=== PATIENT | female | born 1945 | race Caucasian/White ===

== ENCOUNTER 2016-03-04 11:29 | Outpatient (CLI) | payer MEDICARE, OTHER ==
[2016-03-04 12:23] LABS: eGFR (African) > 60; eGFR (Non-African) > 60
== END 2016-03-04 11:30 ==
LOC: LAB 11:29
PROVIDERS: ATTEND Family Medicine
DX: E78.2 Mixed hyperlipidemia (principal); E11.9 Type 2 diabetes mellitus without complications
CPT/HCPCS: 36415; 80053; 80061; 83036

== ENCOUNTER 2016-04-03 10:16 | Outpatient (CLI) | payer MEDICARE, OTHER | END 2016-04-03 10:17 | LOC: LABRHC 10:16 | PROVIDERS: ATTEND Physician Assistant | DX: N39.0 Urinary tract infection, site not specified (principal) | CPT/HCPCS: 87086; 87186 ==

== ENCOUNTER 2017-03-25 11:02 | Outpatient (CLI) | payer MEDICARE, OTHER ==
[2017-03-25 11:44] LABS: eGFR (African) > 60; eGFR (Non-African) > 60
== END 2017-03-25 11:03 ==
LOC: LAB 11:02
PROVIDERS: ATTEND Family Medicine
DX: E78.2 Mixed hyperlipidemia (principal); E11.9 Type 2 diabetes mellitus without complications
CPT/HCPCS: 36415; 80053; 80061; 83036

== ENCOUNTER 2018-03-15 11:48 | Outpatient (CLI) | payer MEDICARE, OTHER ==
[2018-03-15 12:23] LABS: eGFR (Non-African) > 60
== END 2018-03-15 11:55 ==
LOC: LAB 11:48
PROVIDERS: ATTEND Family Medicine
DX: E11.9 Type 2 diabetes mellitus without complications (principal)
CPT/HCPCS: 36415; 80053; 80061; 83036

== ENCOUNTER 2018-05-16 12:11 | Outpatient (CLI) | payer MEDICARE, OTHER ==
[2018-05-16 13:09] LABS: BASOPHILS % 0.6 (0.0-1.5); EOSINOPHILS % 2.2 % (0.0-6.8); MONOCYTES % 4.6 % (0.0-11.0); NEUTROPHILS # 8.3 # k/uL (1.4-7.7)
[2018-05-16 13:11] LABS: ANISOCYTOSIS 2+ (NEGATIVE); HYPOCHROMASIA 2+ (NEGATIVE); OVALOCYTES 1+ (NEGATIVE)
[2018-05-16 13:12] LABS: TARGET CELLS 1+ (NEGATIVE)
[2018-05-16 13:56] LABS: MEAN CORPUSCULAR HEMOGLOBIN 20.7 pg (28.0-34.0)
== END 2018-05-16 12:13 ==
LOC: LAB 12:11
PROVIDERS: ATTEND Internal Medicine
DX: D64.9 Anemia, unspecified (principal); R10.9 Unspecified abdominal pain; K62.9 Disease of anus and rectum, unspecified; N94.89 Other specified conditions associated with female genital organs and menstrual cycle
CPT/HCPCS: 36415; 85025

== ENCOUNTER 2018-06-28 15:15 | Outpatient (CLI) | payer MEDICARE, OTHER | END 2018-06-28 15:17 | LOC: LAB 15:15 | PROVIDERS: ATTEND Internal Medicine | DX: N39.0 Urinary tract infection, site not specified (principal); B95.7 Other staphylococcus as the cause of diseases classified elsewhere; Z16.24 Resistance to multiple antibiotics | CPT/HCPCS: 87086 ==